=== PATIENT | male | born 1985 | race American Indian/Alaskan Native ===

== ENCOUNTER 2018-06-19 18:38 | Emergency (ER) | payer OTHER ==
--- NOTE | 2018-06-19 19:34 | Emergency Department Report ---
Chief Complaint: Extremity Problem,Nontraumatic Stated Complaint: RT LEG CANT BEND/PAIN Time Seen by Provider: 06/19/18 19:31 - HPI History of Present Illness: pt states that he has right sided groin pain that began three days ago states he has swelling in the groin denies any injury, fall or trauma no testicular or penile pain denies every having in the past no PMHx + smoker non drinker +marijuana will need further eval in a gown MSE screening note: Focused history performed. Due to findings the following was ordered: UA ED Disposition for MSE Condition: Stable
[2018-06-19 19:35] VITALS: BP 116/67
[2018-06-19 21:43] LABS: Bacteria,Urine 1+ /HPF (Negative); Bilirubin,Urine NEG (Negative); Blood,Urine NEG (Negative); Color,Urine Yellow (Yellow); Mucus,Urine 2+ /HPF; Protein,Urine <15 mg/dL mg/dL (Negative)
[2018-06-19] MEDS ORDERED: IBUPROFEN PO ONE (23:43)
--- NOTE | 2018-06-19 23:44 | Emergency Department Report ---
- General Chief complaint: Extremity Problem,Nontraumatic Stated complaint: RT LEG CANT BEND/PAIN Time Seen by Provider: 06/19/18 19:31 Source: patient Mode of arrival: Ambulatory Limitations: No Limitations - History of Present Illness Initial comments: 32-year-old -Thai male presents to the emergency room complaining of swelling to the inside of his right thigh 3 days. Patient denies any injury to the site. Patient reports that is very painful and has drainage. Patient reports no known drug allergies has no past medical history takes no medications on a daily basis. Patient reports that the pain is a 10 out of 10. MD complaint: abscess/boil -: days(s) (4) Location: RLE Severity scale (0 -10): 10 Quality: burning, stabbing, aching, sharp Consistency: constant Improves with: none Worsens with: palpation, movement Associated symptoms: denies other symptoms Treatments Prior to Arrival: none - Related Data Previous Rx's Medication Instructions Recorded Last Taken Type Naproxen 500 mg PO BID PRN #14 tablet 06/20/18 Unknown Rx Sulfamethoxazole/Trimethoprim 1 each PO BID #14 tablet 06/20/18 Unknown Rx [Bactrim DS TAB] cephALEXin [Keflex] 500 mg PO Q12HR #14 cap 06/20/18 Unknown Rx Allergies Allergy/AdvReac Type Severity Reaction Status Date / Time No Known Allergies Allergy Verified 06/19/18 18:48 Abscess Boil HPI - HPI Chief Complaint: Extremity Problem,Nontraumatic Stated Complaint: RT LEG CANT BEND/PAIN Time Seen by Provider: 06/19/18 19:31 Duration: 4 Days History: Yes Pain, Yes Purulent Drainage, No Fever, No Numbness, No Foreign Body, No Previous History, No Insect Bite Home Medications: Previous Rx's Medication Instructions Recorded Last Taken Type Naproxen 500 mg PO BID PRN #14 tablet 06/20/18 Unknown Rx Sulfamethoxazole/Trimethoprim 1 each PO BID #14 tablet 06/20/18 Unknown Rx [Bactrim DS TAB] cephALEXin [Keflex] 500 mg PO Q12HR #14 cap 06/20/18 Unknown Rx Allergies/Adverse Reactions: Allergies Allergy/AdvReac Type Severity Reaction Status Date / Time No Known Allergies Allergy Verified 06/19/18 18:48 ED Review of Systems ROS: Stated complaint: RT LEG CANT BEND/PAIN Other details as noted in HPI Comment: All other systems reviewed and negative Skin: lesions ED Past Medical Hx - Past Medical History Previous Medical History?: No - Surgical History Past Surgical History?: No - Social History Smoking Status: Current Every Day Smoker Substance Use Type: Marijuana - Medications Home Medications: Home Medications Medication Instructions Recorded Confirmed Last Taken Type Naproxen 500 mg PO BID PRN #14 tablet 06/20/18 Unknown Rx Sulfamethoxazole/Trimethoprim 1 each PO BID #14 tablet 06/20/18 Unknown Rx [Bactrim DS TAB] cephALEXin [Keflex] 500 mg PO Q12HR #14 cap 06/20/18 Unknown Rx ED Physical Exam - General Limitations: No Limitations General appearance: alert, in no apparent distress - Head Head exam: Present: atraumatic, normocephalic - Eye Eye exam: Present: normal appearance - ENT ENT exam: Present: mucous membranes moist - Neck Neck exam: Present: normal inspection - Respiratory Respiratory exam: Present: normal lung sounds bilaterally. Absent: respiratory distress - Cardiovascular Cardiovascular Exam: Present: regular rate, normal rhythm. Absent: systolic murmur, diastolic murmur, rubs, gallop - External exam: Present: other (left lymphadenopathy in the groin area) - Expanded Lower Extremity Exam Right Upper Leg exam: Present: tenderness, swelling, erythema Neuro vascular tendon exam: Present: no vascular compromise Gait: Positive: observed and limited by pain - Neurological Exam Neurological exam: Present: alert, oriented X3 - Psychiatric Psychiatric exam: Present: normal affect, normal mood - Expanded Skin Exam Expanded Distribution of rash: RLE Description of rash: Present: tenderness, swelling, discharge, indurated ED Course Vital Signs 06/19/18 19:31 Temperature 99.4 F Pulse Rate 85 Respiratory 16 Rate Blood Pressure 116/67 O2 Sat by Pulse 99 Oximetry ED Medical Decision Making - Medical Decision Making Patient has been evaluated by this provider and [facility]. Patient appears to have cellulitis with an abscess to the right inner thigh. Patient was given ibuprofen for pain management. Patient's urine shows a urinary tract infection with 40 WBCs in the urine. Patient be placed on Keflex and Bactrim. Discussed patient to place warm compresses to the area he can take Tylenol and/or Motrin for pain management. Critical care attestation.: If time is entered above; I have spent that time in minutes in the direct care of this critically ill patient, excluding procedure time. ED Disposition Clinical Impression: UTI (urinary tract infection), Abscess of right thigh Disposition: [id number] TO HOME OR SELFCARE Is pt being admited?: No Does the pt Need Aspirin: No Condition: Stable Instructions: Abscess (ED), Urinary Tract Infection in Men (ED) Additional Instructions: Complete antibiotics as prescribed. Pain medication as needed. Please use warm compresses to the ear or warm to hot showers or baths to help with the pain . Follow-up with the primary care provider for symptoms persist or gets worse. Prescriptions: Sulfamethoxazole/Trimethoprim [Bactrim DS TAB] 1 each PO BID #14 tablet cephALEXin [Keflex] 500 mg PO Q12HR #14 cap Naproxen 500 mg PO BID PRN #14 tablet PRN Reason: Pain , Severe (7-10) Referrals: AP HICKEY MD [Primary Care Provider] - 3-5 Days
== END 2018-06-20 00:45 | disposition home or self-care (01) ==
LOC: ED 18:38
DX: L02.415 Cutaneous abscess of right lower limb (principal); N39.0 Urinary tract infection, site not specified; F17.200 Nicotine dependence, unspecified, uncomplicated; F12.10 Cannabis abuse, uncomplicated
CPT/HCPCS: 81001; 99283